=== PATIENT | female | born 1935 | race Caucasian/White ===

== ENCOUNTER 2016-10-03 21:28 | Inpatient (IN) | payer BC, MEDICARE ==
[~2016-10-03] VITALS: Ht 144.8 cm; Wt 52.9 kg
[2016-10-03] MEDS ORDERED: ATIVAN0.5 MG PO (23:33)
[2016-10-03] MEDS ORDERED: LASIX20 MG PO (23:34)
[2016-10-03] MEDS ORDERED: BAYER CHEWABLE81 MG PO (23:35)
[2016-10-03] MEDS ORDERED: CENTRUM SILVER1 EAC1 PO (23:35)
[2016-10-03] MEDS ORDERED: TESSALON PERLE100 MG PO (23:36)
[2016-10-03] MEDS ORDERED: ULTRAM50 MG PO (23:36)
[2016-10-03] MEDS ORDERED: OMEPRAZOLE20 M1 PO (23:36)
[2016-10-03] MEDS ORDERED: CORDARONE 200M200 MG PO (23:37)
[2016-10-04 01:30] LABS: HEMOGLOBIN 10.7 gm/dl (12.3-15.3); RED BLOOD COUNT 3.75 M/UL (4.00-5.10); WHITE BLOOD COUNT 4.3 K/UL (4.5-11.0)
[2016-10-04 07:11] LABS: HEMOGLOBIN 11.1 gm/dl (12.3-15.3); RED BLOOD COUNT 3.87 M/UL (4.00-5.10); WHITE BLOOD COUNT 4.4 K/UL (4.5-11.0)
[2016-10-05] MEDS ORDERED: MAG-OX 400 TAB400 MG GT (11:49)
[2016-10-05] MEDS ORDERED: FERROUS SULFAT325 M2 PO (11:50)
[2016-10-05] MEDS ORDERED: COREG 3.125M3.125 MG PO (12:01)
[2016-10-05] MEDS ORDERED: PRINIVIL5 MG PO (12:02)
[2016-10-05] MEDS ORDERED: LASIX 40 MG TAB40 MG PO (12:03)
[2016-10-05] MEDS ORDERED: LISINOPRIL2.5 MG PO (12:08)
== END 2016-10-05 13:40 | disposition home or self-care (01) | DRG 291 ==
LOC: M/S 23:01
PROVIDERS: ADMIT Internal Medicine
DX: I13.0 Hypertensive heart and chronic kidney disease with heart failure and stage 1 through stage 4 chronic kidney disease, or unspecified chronic kidney disease (principal); I50.23 Acute on chronic systolic (congestive) heart failure; J96.01 Acute respiratory failure with hypoxia; I31.9 Disease of pericardium, unspecified; I27.2 Other secondary pulmonary hypertension; I36.1 Nonrheumatic tricuspid (valve) insufficiency; I45.81 Long QT syndrome; I48.0 Paroxysmal atrial fibrillation; N18.3 Chronic kidney disease, stage 3 (moderate); D50.9 Iron deficiency anemia, unspecified; E83.42 Hypomagnesemia; E78.5 Hyperlipidemia, unspecified; K21.9 Gastro-esophageal reflux disease without esophagitis; Z86.718 Personal history of other venous thrombosis and embolism; M81.0 Age-related osteoporosis without current pathological fracture; Z90.710 Acquired absence of both cervix and uterus; Z98.41 Cataract extraction status, right eye; Z98.42 Cataract extraction status, left eye; Z82.49 Family history of ischemic heart disease and other diseases of the circulatory system; Z79.82 Long term (current) use of aspirin; Z79.899 Other long term (current) drug therapy
CPT/HCPCS: ECHO; 36415; 71010; 80048; 80053; 80061; 81001; 82550; 82553; 82607; 82728; 82800; 83540; 83550; 83735; 83880; 84100; 84439; 84443; 84484; 85025; 85027; 93005; 93306; J1650; J1940